=== PATIENT | female | born 1975 | race Two or more races ===

== ENCOUNTER 2019-08-25 18:35 | Emergency (ER) | payer SELFPAY ==
[~2019-08-25] VITALS: Ht 152.4 cm; Wt 66.5 kg
[~2019-08-25 18:35] MED LIST: ACYC-63 PO; FURO-69 PO; POTA10CA PO
[2019-08-25 19:51] VITALS: BP 97/63
--- NOTE | 2019-08-25 20:06 | RAD ---
INDICATION: Reason: Injury from fall 2 days ago, 5th digit pain radiating into hand / Spl. Instructions: / History: COMPARISON: None. IMPRESSION: Left wrist: 3 views obtained. A definite acute fracture line is not seen. Electronically signed by: Ishaan Sheikh MD (08/25/2019 8:03 PM) [id number]
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
== END 2019-08-25 20:45 | disposition home or self-care (01) ==
LOC: ER 18:35
DX: S60.052A Contusion of left little finger without damage to nail, initial encounter (principal); F17.210 Nicotine dependence, cigarettes, uncomplicated; Z98.890 Other specified postprocedural states; Z88.0 Allergy status to penicillin; W18.39XA Other fall on same level, initial encounter; Y93.89 Activity, other specified; Y92.89 Other specified places as the place of occurrence of the external cause; Y99.8 Other external cause status
CPT/HCPCS: 29125; 73130; 99283

== ENCOUNTER 2019-09-03 15:02 | Emergency (ER) | payer OTHER ==
[~2019-09-03] VITALS: Ht 152.4 cm; Wt 66.5 kg
[2019-09-03 15:05] VITALS: BP 120/86
[2019-09-03] MEDS ORDERED: HYDROcodone/APAP 5/325MG 1 TAB TABLET PO ONE (15:30)
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
[2019-09-03] MEDS ORDERED: HYDR-3165 PO (15:51)
== END 2019-09-03 15:56 | disposition home or self-care (01) ==
LOC: ER 15:02
DX: S50.11XA Contusion of right forearm, initial encounter (principal); F17.210 Nicotine dependence, cigarettes, uncomplicated; Z88.0 Allergy status to penicillin; W51.XXXA Accidental striking against or bumped into by another person, initial encounter; Y93.89 Activity, other specified; Y92.89 Other specified places as the place of occurrence of the external cause; Y99.0 Civilian activity done for income or pay
CPT/HCPCS: 73090; 99283

== ENCOUNTER 2020-05-19 17:30 | Emergency (ER) | payer SELFPAY ==
[~2020-05-19] VITALS: Ht 152.4 cm; Wt 66.5 kg
[~2020-05-19 17:30] MED LIST changes: +HYDR-3165 PO
[2020-05-19 17:36] VITALS: BP 138/89
[2020-05-19] MEDS ORDERED: HYDROcodone/APAP 5/325MG 1 TAB TABLET PO ONE (17:45)
[2020-05-19] MEDS ORDERED: IBUPROFEN 600 MG TABLET. PO ONE (17:45)
--- NOTE | 2020-05-19 18:00 | RAD ---
Exam: Right foot 3 views INDICATION: Twisted felt a pop 2 days ago TECHNIQUE: Frontal, lateral and oblique views of the right foot Comparisons: None FINDINGS: Bone mineralization is normal. No acute or healed fractures. Soft tissues are unremarkable. Joint spa cee are well-maintained. IMPRESSION: No acute osseous abnormality. Electronically signed by: Ynes Maxwell MD (05/19/2020 5:58 PM) KARTHIKEYAN
--- NOTE | 2020-05-19 18:11 | PHYS DOC ---
Past History Past Medical History: No Pertinent History Past Surgical History: Smoking: Cigarettes, Less than 1pk/day Alcohol Use: Rarely Drug Use: None Adult General Chief Complaint Chief Complaint: LOWER EXT PAIN HPI HPI Patient is a 44-year-old female presents to the emergency department stating she rolled her right ankle 2 days ago at approximately 2200. Patient states she has been hobbling around on her foot since then and is not felt any better with taking [id number] Tylenol at home. Patient reports her pain a 9/10 on a 1-10 pain scale. Patient denies any other physical complaints or physical injuries. Patient reports a allergy to penicillin, states she takes no prescription medications at home only an occasional idwk-ekc-vckqila Tylenol or ibuprofen for minor aches and pains. Patient ports her only surgical history are for C-sections her last 1 being 20 years ago. Review of Systems Review of Systems 14 body systems of review of systems have been reviewed. See HPI for pertinent positives and negative responses, otherwise all other systems are negative, nonpertinent or noncontributory. Current Medications Current Medications Current Medications Medications (Trade) Dose Ordered Sig/Mary Start Time Stop Time Status Last Admin Dose Admin Acetaminophen/ Hydrocodone Bitart (Lortab 5/325) 2 tab 1X ONCE 05/19/20 17:45 05/19/20 17:56 DC 05/19/20 17:54 2 TAB Ibuprofen (Motrin) 600 mg 1X ONCE 05/19/20 17:45 05/19/20 17:56 DC 05/19/20 17:55 600 MG Allergies Allergies Allergies Coded Allergies Type Severity Reaction Last Updated Verified Penicillins Allergy Intermediate hives 09/21/13 Yes Physical Exam Physical Exam Constitutional: Well developed, well nourished, no acute distress, non-toxic appearance. 44-year-old female no apparent distress. HENT: Normocephalic, atraumatic, bilateral external ears normal, oropharynx moist, no oral exudates, nose normal. Eyes: No obvious conjunctival hemorrhage or drainage, appears normal, patient tracking normally. Neck: Normal movement of head and neck. Cardiovascular: Distal cap refill less than 2 seconds, no cyanosis appreciated. Lungs & Thorax: No adventitious audible breath sounds appreciated, patient no respiratory distress. Skin: Warm, dry, no erythema, no rash noted on visible skin surfaces. Extremities: No tenderness, no cyanosis, no clubbing, ROM intact, no edema. Except for right lower extremity, pain to palpation lateral malleolar surfaces with noted swelling to adjacent structures, no bruising or ecchymotic areas appreciated, limited passive range of motion related to pain., Distal cap refill less than 2 seconds, 2+ dorsalis pedis pulses, no loss of sensation appreciated. Neurologic: Alert and oriented X 3, normal motor function, normal sensory function, no focal deficits noted. Psychologic: Affect normal, judgement normal, mood normal. Current Patient Data Vital Signs Vital Signs Date Time Temp Pulse Resp B/P (MAP) Pulse Ox O2 Delivery O2 Flow Rate FiO2 05/19/20 17:54 16 98 Room Air 05/19/20 17:36 97.8 94 138/89 (105) EKG EKG [] Radiology/Procedures Radiology/Procedures PATIENT: KARIE PARKINSON ACCOUNT: [id number] : 1975 LOCATION: ER AGE: 44 SEX: F EXAM STATUS: REG ER ORD. PHYSICIAN: KODY STUBBS APRN REASON: TWISTED FELT POP 2 DAYS AGO PROCEDURE: ANKLE RIGHT 3V Exam: Right foot 3 views INDICATION: Twisted felt a pop 2 days ago TECHNIQUE: Frontal, lateral and oblique views of the right foot Comparisons: None FINDINGS: Bone mineralization is normal. No acute or healed fractures. Soft tissues are unremarkable. Joint spaces are well-maintained. IMPRESSION: No acute osseous abnormality. Electronically signed by: Ynes Hernandez MD (05/19/2020 5:58 PM) [facility] DICTATED AND SIGNED BY: YNES HERNANDEZ MD DATE: 05/19/20 1755 CC: KODY STUBBS APRN; EMERGENCY,DEPARTMENT; PCP,NO ~MTH0 0 Heart Score C/O Chest Pain: No Risk Factors: Risk Factors: DM, Current or recent (<one month) smoker, HTN, HLP, family history of CAD, obesity. Risk Scores: Risk Factors: DM, Current or recent (<one month) smoker, HTN, HLP, family history of CAD, obesity. Course & Med Decision Making Course & Med Decision Making Pertinent Labs and Imaging studies reviewed. (See chart for details) 44-year-old female, vital signs reviewed, presents emergency department concerning of right ankle pain after rolling it 2 evenings ago. Physical examination concerning for ankle sprain versus occult fracture. An x-ray was ordered of the right ankle. Patient was given p.o. ibuprofen and p.o. [place] for pain. Ice pack offered. No acute fracture appreciated per house radiologist interpretation, discussed findings with patient, discussed RICE therapy, discussed treatment with Randy wrap and ankle stirrup device. Patient gave verbal understanding of discharge home instructions, RICE therapy, Randy wrap and ankle stirrup use, follow-up with primary care for ongoing aches and pains, return to ER precautions or concerns, patient had no further questions or concerns, was discharged home without incident. Kristinon Disclaimer Julio Cesar Disclaimer This electronic medical record was generated, in whole or in part, using a voice recognition dictation system. Departure Departure: Impression: Primary Impression: Right ankle sprain Disposition: 01 DC HOME SELF CARE/HOMELESS Condition: GOOD Referrals: [facility] W[facility]ER Patient Instructions: Cast or Splint Care, Elastic Bandage and RICE, RICE - Routine Care for Injuries Additional Instructions: The x-ray performed on your right ankle did not show any fracture. As we discussed, this is most likely a sprained ankle. Please use the stirrup splint for the next week and follow RICE therapy as we discussed. Please see your doctor soon for reevaluation for ongoing ankle discomfort. Return to the emergency department for worsening symptoms or other concerns. Please use ifld-bwl-dbbohpn ibuprofen for pain and discomfort. EMERGENCY DEPARTMENT GENERAL DISCHARGE INSTRUCTIONS Thank you for coming to [facility] (ED) today and trusting us with you care. We trust that you had a positivie experience in our Emergency Department. If you wish to speak to the department management, you may call the director at [phone]. YOUR FOLLOW UP INSTRUCTIONS ARE FOLLOWS: 1. Do you have a private Doctor? If you do not have a private doctor, please ask for a resource list of physicians or clinics that may be able to assist you with follow up care. 2. The Emergency Physician has interpreted your x-rays. The X-Ray specialist will also review them. If there is a change in the findings, you will be notified in 48 hours when at all possible. 3. A lab test or culture has been done, your results will be reviewed and you will be notified if you need a change in treatment. ADDITIONAL INSTRUCTIONS AND INFORMATION: 1. Your care today has been supervised by a physician who is specially trained in emergency care. Many problems require more than one evaluation for a complete diagnosis and treatment. We recommend that you schedule your follow up appointment as recommended to ensure complete treatment of you illness or injury. If you are unable to obtain follow up care and continue to have a problem, or if your condition worsens, we recommend that you return to the ED. 2. We are not able to safely determine your condition over the phone nor are we able to give sound medical advice over the phone. For these safety reasons, if you call for medical advice we will ask you to come to the ED for further evaluation. 3. If you have any questions regarding these discharge instructions please call the ED at [phone]. SAFETY INFORMATION: In the interest of safety, wellness, and injury prevention; we encourage you to wear your sealbelt, if you smoke; quite smoking, and we encourage family to use a protective helmet for bicycling and other sporting events that present an increased risk for head injury. IF YOUR SYMPTOMS WORSEN OR NEW SYMPTOMS DEVELOP, OR YOU HAVE CONCERNS ABOUT YOUR CONDITION; OR IF YOUR CONDITION WORSENS WHILE YOU ARE WAITING FOR YOUR FOLLOW UP APPOINTMENT; EITHER CONTACT YOUR PRIMARY CARE DOCTOR, THE PHYSICIAN WHOSE NAME AND NUMBER YOU WERE GIVEN, OR RETURN TO THE ED IMMEDIATELY. Problem Qualifiers Primary Impression: Right ankle sprain Encounter type: initial encounter Involved ligament of ankle: unspecified ligament Qualified Codes: S93.401A - Sprain of unspecified ligament of right ankle, initial encounter KODY STUBBS CCO & PRESIDENT May 19, 2020 18:11
== END 2020-05-19 18:17 | disposition home or self-care (01) ==
LOC: ER 17:30
DX: S93.401A Sprain of unspecified ligament of right ankle, initial encounter (principal); X50.9XXA Other and unspecified overexertion or strenuous movements or postures, initial encounter; Y99.8 Other external cause status; Y93.89 Activity, other specified; Y92.89 Other specified places as the place of occurrence of the external cause
CPT/HCPCS: 29515; 73610; 99283

== ENCOUNTER 2020-06-12 21:46 | Emergency (ER) | payer SELFPAY ==
[~2020-06-12] VITALS: Ht 152.4 cm; Wt 66.5 kg
[~2020-06-12 21:46] MED LIST changes: -ACYC-63 PO; +ACYC200C84 PO
[2020-06-12 21:50] VITALS: BP 145/83
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
[2020-06-12] MEDS ORDERED: HYDR-1179 PO ×2 (23:47→23:52)
== END 2020-06-13 00:10 | disposition home or self-care (01) ==
LOC: ER 21:46
DX: S90.111A Contusion of right great toe without damage to nail, initial encounter (principal); M19.90 Unspecified osteoarthritis, unspecified site; F17.210 Nicotine dependence, cigarettes, uncomplicated; Z88.0 Allergy status to penicillin; W22.8XXA Striking against or struck by other objects, initial encounter; Y93.89 Activity, other specified; Y92.89 Other specified places as the place of occurrence of the external cause; Y99.8 Other external cause status
CPT/HCPCS: 73630; 99283

== ENCOUNTER 2020-10-29 03:54 | Emergency (ER) | payer OTHER ==
[~2020-10-29] VITALS: Ht 152.4 cm; Wt 70.5 kg
[~2020-10-29 03:54] MED LIST changes: +HYDR-1179 PO
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
[2020-10-29 04:07] VITALS: BP 113/72
[2020-10-29] MEDS ORDERED: ACETAMINOPHEN 500 MG TABLET PO ONE (04:15)
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
== END 2020-10-29 05:01 | disposition home or self-care (01) ==
LOC: ER 03:54
DX: M79.642 Pain in left hand (principal); R51.9 Headache, unspecified; F17.210 Nicotine dependence, cigarettes, uncomplicated; V43.62XA Car passenger injured in collision with other type car in traffic accident, initial encounter; Y93.89 Activity, other specified; Y92.488 Other paved roadways as the place of occurrence of the external cause; Y99.8 Other external cause status
CPT/HCPCS: 73110; 73130; 99284-25

== ENCOUNTER 2021-01-24 12:41 | Emergency (ER) | payer SELFPAY ==
[~2021-01-24] VITALS: Ht 152.4 cm; Wt 70.5 kg
[2021-01-24 12:55] VITALS: BP 166/86
[2021-01-24 14:05] LABS: BACTERIA,URINE MOD /HPF (0-FEW); BILIRUBIN,URINE NEG (NEG); CLARITY,URINE HAZY; COLOR,URINE YELLOW; GLUCOSE,URINE NEG (NEG); NITRITE,URINE NEG (NEG); RBC,URINE OCC /HPF (0-2); SQUAMOUS EPITHELIAL CELL,UR MOD /LPF; UROBILINOGEN,URINE 0.2 mg/dL (0.2 mg/dL)
[2021-01-24] MEDS ORDERED: CEPH500C PO (14:33)
[2021-01-24] MEDS ORDERED: IBUP600T16 PO (14:33)
--- NOTE | 2021-01-24 14:33 | PHYS DOC ---
Past History Past Medical History: Arthritis, Hypertension Past Surgical History: Smoking: Cigarettes, Less than 1pk/day Alcohol Use: Heavy Drug Use: None General Adult EDM: Chief Complaint: DENTAL PROBLEM HPI: HPI: Patient is a 45-year-old female that presents today with multiple complaints. Patient states that she has right lower jaw pain from a broken tooth she said she has noticed the pain increased over the last 2 days and has come in for treatment of that she does not have a dentist at this time and is having increased pain. Patient is also here because she has not had a period since October 2020, she states she has taken 4 test and 3 of them have come back positive, so she is here to find out if she is . Review of Systems: Review of Systems: Constitutional: Denies fever or chills Eyes: Denies change in visual acuity HENT: Right lower jaw pain Respiratory: Denies cough or shortness of breath Cardiovascular: Denies chest pain or edema GI: Denies abdominal pain, nausea, vomiting, bloody stools or diarrhea : Denies dysuria Musculoskeletal: Denies back pain or joint pain Integument: Denies rash Neurologic: Denies headache, focal weakness or sensory changes Endocrine: Denies polyuria or polydipsia Lymphatic: Denies swollen glands Psychiatric: Denies depression or anxiety Allergies: Allergies: Allergies Coded Allergies Type Severity Reaction Last Updated Verified Penicillins Allergy Intermediate hives 09/21/13 Yes Physical Exam: PE: Constitutional: Well developed, well nourished, no acute distress, non-toxic appearance. [] HENT: Normocephalic, atraumatic, localized swelling noted in the left lower jaw over the incisor, broken tooth is noted exposed root is noted swelling is noted at that site. No bleeding or drainage is noted Eyes: PERRLA, EOMI, conjunctiva normal, no discharge. [] Neck: Normal range of motion, no tenderness, supple, no stridor. [] Cardiovascular:Heart rate regular rhythm, no murmur [] Lungs & Thorax: Bilateral breath sounds clear to auscultation [] Abdomen: Bowel sounds normal, soft, no tenderness, no masses, no pulsatile masses. [] Skin: Warm, dry, no erythema, no rash. [] Back: No tenderness, no CVA tenderness. [] Extremities: No tenderness, no cyanosis, no clubbing, ROM intact, no edema. [] Neurologic: Alert and oriented X 3, normal motor function, normal sensory function, no focal deficits noted. [] Psychologic: Affect normal, judgement normal, mood normal. [] Current Patient Data: Labs: Laboratory Tests Test 01/24/21 13:15 01/24/21 13:36 Urine Collection Type Unknown Urine Color Yellow Urine Clarity Hazy Urine pH 5.5 Urine Specific [place] >=1.030 Urine Protein Neg (NEG-TRACE) Urine Glucose (UA) Neg mg/dL (NEG) Urine Ketones (Stick) Neg mg/dL (NEG) Urine Blood Trace (NEG) Urine Nitrite Neg (NEG) Urine Bilirubin Neg (NEG) Urine Urobilinogen Dipstick 0.2 mg/dL (0.2 mg/dL) Urine Leukocyte Esterase Neg (NEG) Urine RBC Occ /HPF (0-2) Urine WBC 1-4 /HPF (0-4) Urine Squamous Epithelial Cells Mod /LPF Urine Bacteria Mod /HPF (0-FEW) Urine Mucus Mod /LPF POC Urine HCG, Qualitative hcg negative (Negative) Vital Signs: Vital Signs Date Time Temp Pulse Resp B/P (MAP) Pulse Ox O2 Delivery O2 Flow Rate FiO2 01/24/21 12:55 98.3 96 16 166/86 (112) 100 Room Air EKG: EKG: [] Radiology/Procedures: Radiology/Procedures: [] Heart Score: C/O Chest Pain: N/A Risk Factors: Risk Factors: DM, Current or recent (<one month) smoker, HTN, HLP, family history of CAD, obesity. Risk Scores: Score 0 - 3: 2.5% MACE over next 6 weeks - Discharge Home Score 4 - 6: 20.3% MACE over next 6 weeks - Admit for Clinical Observation Score 7 - 10: 72.7% MACE over next 6 weeks - Early Invasive Strategies Course & Med Decision Making: Course & Med Decision Making Pertinent Labs and Imaging studies reviewed. (See chart for details) Reviewed laboratory results with patient, will send patient home with an antibiotic for dental abscess, also will give patient a list of dental clinics that she can follow-up with due to her financial situation that will offer little to no cost care. Patient is agreeable to the plan of care. Julio Cesar Disclaimer: Julio Cesar Disclaimer: This electronic medical record was generated, in whole or in part, using a voice recognition dictation system. Departure Departure: Impression: Primary Impression: Dental caries Disposition: HOME / SELF CARE / HOMELESS Condition: STABLE Referrals: PCP,PERI (PCP) Patient Instructions: Dental Caries Additional Instructions: Keflex 1 tablet 4 times daily for the next 10 days Motrin 600 mg every 6 hours as needed for pain Follow-up with a dentist [facility] Cephalexin (KEFLEX) 500 Mg Capsule 1 CAP PO QID for dental for 10 Days, #40 CAP Prov: LINDA ORTEGA ASSISTANT BRANCH MANAGER 01/24/21 Ibuprofen (IBUPROFEN) 600 Mg Tablet 600 MG PO PRN Q6HRS PRN for PAIN, #30 TAB Prov: LINDA ORTEGA ASSISTANT BRANCH MANAGER 01/24/21 LINDA ORTEGA APRN Jan 24, 2021 14:33
== END 2021-01-24 14:46 | disposition home or self-care (01) ==
LOC: ER 12:41
DX: K02.9 Dental caries, unspecified (principal); Z32.02 Encounter for pregnancy test, result negative; M19.90 Unspecified osteoarthritis, unspecified site; I10 Essential (primary) hypertension; F17.210 Nicotine dependence, cigarettes, uncomplicated; F10.20 Alcohol dependence, uncomplicated; Z88.0 Allergy status to penicillin; Y90.9 Presence of alcohol in blood, level not specified
CPT/HCPCS: 81001; 81025; 87086; 99283

== ENCOUNTER 2021-02-08 00:37 | Emergency (ER) | payer SELFPAY ==
[~2021-02-08] VITALS: Ht 152.4 cm; Wt 71.0 kg
[~2021-02-08 00:37] MED LIST changes: +CEPH500C PO; +IBUP600T16 PO
[2021-02-08] MEDS ORDERED: ACETAMINOPHEN 500 MG TABLET PO ONE (01:00)
--- NOTE | 2021-02-08 01:04 | PHYS DOC ---
Past History Past Medical History: Arthritis, Hypertension Past Surgical History: No Surgical History, Smoking: Cigarettes, Less than 1pk/day Alcohol Use: None Drug Use: None Adult General HPI HPI Patient is a 45-year-old female, otherwise healthy and up-to-date on tetanus who presents after tripping and falling while walking behind [employer] and hitting her forehead on the ground. Denies any loss of consciousness, changes in vision, neck pain, chest pain, shortness of breath, abdominal pain, nausea, vomiting. Denies any numbness/weakness/tingling. Denies any trouble sitting, standing or walking. States she has a laceration right on her forehead and some pain in the area, 5 out of 10, dull and achy in nature. Review of Systems Review of Systems Review of systems otherwise unremarkable except noted in HPI Allergies Allergies Allergies Coded Allergies Type Severity Reaction Last Updated Verified Penicillins Allergy Intermediate hives 09/21/13 Yes Physical Exam Physical Exam Constitutional: Well developed, well nourished, no acute distress, non-toxic appearance. [] HENT: Patient has a T-shaped superficial laceration on forehead, 2 cm x 2 cm, bleeding controlled, bilateral external ears normal, oropharynx moist, no oral exudates, nose normal. [] Eyes: PERRLA, EOMI, conjunctiva normal, no discharge. [] Neck: Normal range of motion, no tenderness, supple, no stridor. [] Cardiovascular:Heart rate regular rhythm, no murmur [] Lungs & Thorax: Bilateral breath sounds clear to auscultation [] Abdomen: soft, no tenderness, no masses, no pulsatile masses. [] Skin: Warm, dry, no erythema, no rash. [] Back: No tenderness, no CVA tenderness. [] Extremities: No tenderness, no cyanosis, no clubbing, ROM intact, no edema. [] Neurologic: Alert and oriented X 3, normal motor function, normal sensory function, able to sit, stand and walk without issue, no focal deficits noted. [] Psychologic: Affect normal, judgement normal, mood normal. [] EKG EKG [] Radiology/Procedures Radiology/Procedures [] Heart Score C/O Chest Pain: No Risk Factors: Risk Factors: DM, Current or recent (<one month) smoker, HTN, HLP, family history of CAD, obesity. Risk Scores: Risk Factors: DM, Current or recent (<one month) smoker, HTN, HLP, family history of CAD, obesity. Course & Med Decision Making Course & Med Decision Making Patient is a 45-year-old female presents with forehead laceration after tripping and falling Vital signs not concerning. Physical exam noted above. Patient given ice pack and Tylenol. CT of the head with no acute osseous abnormalities with incidental findings suggestive of hemangioma. Given patient copy of report and advised to follow-up with primary care to discuss need for outpatient MRI. Wound cleaned extensively, Steri-Stripped and bandaged. Discussed wound management with patient and given wound care education and materials for home. Advised to follow-up with primary care physician in the morning to update and set up a follow-up. Gave return precautions to the ED. Patient grateful, verbalized understanding and agreed with plan of discharge. [] Dragon Disclaimer Dragon Disclaimer This electronic medical record was generated, in whole or in part, using a voice recognition dictation system. Departure Departure: Impression: Primary Impression: Fall Additional Impression: Laceration Disposition: 01 HOME / SELF CARE / HOMELESS Condition: GOOD Referrals: PCP,PERI (PCP) KIRSTEN DELGADO Patient Instructions: Laceration Care, Adult Additional Instructions: Thank you for coming into the emergency department tonight and allowing us to take care of you. Please read the attached information carefully to go back over some of the things we discussed on wound care. Please keep the area clean, dry and bandaged as we discussed. As demonstrated in the emergency department, please use the wound care materials given you to change your bandage and Steri- Strips daily. Please follow-up in the morning with your primary care physician update on your ED visit and CT results and set up a follow-up for reevaluation in 7 to 10 days. Please come back to the ED with new or concerning symptoms as discussed. Problem Qualifiers JUDY CALLES MD Feb 08, 2021 01:04
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
[2021-02-08 02:05] VITALS: BP 97/62
== END 2021-02-08 02:05 | disposition home or self-care (01) ==
LOC: ER 00:37
DX: S01.81XA Laceration without foreign body of other part of head, initial encounter (principal); M19.90 Unspecified osteoarthritis, unspecified site; I10 Essential (primary) hypertension; F17.210 Nicotine dependence, cigarettes, uncomplicated; Z88.0 Allergy status to penicillin; W01.0XXA Fall on same level from slipping, tripping and stumbling without subsequent striking against object, initial encounter; Y93.89 Activity, other specified; Y92.89 Other specified places as the place of occurrence of the external cause; Y99.8 Other external cause status
CPT/HCPCS: 70450; 81025; 99284

== ENCOUNTER 2021-06-08 16:32 | Emergency (ER) | payer SELFPAY ==
[~2021-06-08] VITALS: Ht 152.4 cm; Wt 71.0 kg
[2021-06-08] MEDS ORDERED: ONDANSETRON PF 4 MG/2 ML VIAL. IVP ONE ×2 (17:00→17:30)
[2021-06-08] MEDS ORDERED: IV NORMAL SALINE 1,000ML 1,000 ML IV ONE (17:15)
--- NOTE | 2021-06-08 17:36 | PHYS DOC ---
Past History Past Medical History: Arthritis, Hypertension Past Surgical History: Smoking: Cigarettes, Less than 1pk/day Alcohol Use: Occasionally Drug Use: None General Adult EDM: Chief Complaint: NAUSEA/VOMITING/DIARRHEA HPI: HPI: Patient is a 45-year-old female presents with nausea and vomiting for 4 days. Patient is also reporting generalized, abdominal pain. Denies diarrhea. Denies taking anything at home for pain or nausea. Denies tobacco or alcohol use. History of arthritis, hypertension. Review of Systems: Review of Systems: ROS At least 10 ROS systems have been reviewed and are negative except as documented in the HPI. General: Negative except as outlined in HPI above. Skin: Negative except as outlined in HPI above. HEENT: Negative except as outlined in HPI above. Neck: Negative except as outlined in HPI above. Respiratory: Negative except as outlined in HPI above.. Cardiovascular: Negative except as outlined in HPI above. Abdomen: Negative except as outlined in HPI above. : Negative except as outlined in HPI above. Back/MSK: Negative except as outlined in HPI above. Neuro: Negative except as outlined in HPI above. Psych: Negative except as outlined in HPI above. Current Medications: Current Meds: Current Medications Medications (Trade) Dose Ordered Sig/Mary Start Time Stop Time Status Last Admin Dose Admin Ondansetron HCl (Zofran) 4 mg 1X ONCE 06/08/21 17:00 06/08/21 17:01 DC 06/08/21 17:06 4 MG Sodium Chloride 1,000 ml @ 1,000 mls/hr 1X ONCE 06/08/21 17:15 06/08/21 18:14 06/08/21 17:06 1,000 MLS/HR Allergies: Allergies: Allergies Coded Allergies Type Severity Reaction Last Updated Verified Penicillins Allergy Intermediate hives 06/08/21 Yes Physical Exam: PE: Constitutional: Well developed, well nourished, no acute distress, non-toxic appearance. [] HENT: Normocephalic, atraumatic, bilateral external ears normal Eyes: PERRLA, EOMI, conjunctiva normal, no discharge. [] Neck: Normal range of motion, no tenderness, supple, no stridor. [] Cardiovascular:Heart rate regular rhythm, no murmur [] Lungs & Thorax: Bilateral breath sounds clear to auscultation [] Abdomen: Bowel sounds normal, soft, tenderness Skin: Warm, dry, no erythema, no rash. [] Back: No tenderness, no CVA tenderness. [] Extremities: No tenderness, no cyanosis, no clubbing, ROM intact, no edema. [] Neurologic: Alert and oriented X 3, normal motor function, normal sensory function, no focal deficits noted. [] Psychologic: Affect normal, judgement normal, mood normal. [] Current Patient Data: Vital Signs: Vital Signs Date Time Temp Pulse Resp B/P (MAP) Pulse Ox O2 Delivery O2 Flow Rate FiO2 06/08/21 16:40 97.7 81 24 128/81 (97) 98 Room Air EKG: EKG: [] Radiology/Procedures: Radiology/Procedures: []Abdominal and Pelvis CT, Without Contrast: History: Reason: generalized abd pain / Spl. Instructions: / History: Comparison: None. Procedure: Axial images are obtained of the abdomen and pelvis, without IV or oral contrast. Oral Contrast: No Findings: Evaluation of solid organs is limited without contrast. The appendix is normal. The gallbladder appears normal. Liver: Normal. Spleen: Normal. Pancreas: Normal. Adrenal Glands: Normal. Kidneys: There is a small nonobstructive stone in the left renal pelvis. There is no free air or free fluid. There is no lymphadenopathy. The urinary bladder appears normal. There is no pericolonic inflammation identified. There is a mixed density lesion in the left adnexa that measures 3.8 x 2.6 cm. Impression: Left ovarian lesion could be benign or malignant. End impression PQRS Compliance Statement: One or more of the following individualized dose reduction techniques were utilized for this examination: 1. Automated exposure control 2. Adjustment of the mA and/or kV according to patient size 3. Use of iterative reconstruction technique Electronically signed by: Hayley Bocanegra III, MD (06/08/2021 7:30 PM) [facility] DICTATED AND SIGNED BY: HAYLEY BOCANEGRA III, MD DATE: 06/08/211911 CC: JOSE KRUGER APRN; PCP,NO ~ Heart Score: C/O Chest Pain: No Risk Factors: Risk Factors: DM, Current or recent (<one month) smoker, HTN, HLP, family history of CAD, obesity. Risk Scores: Score 0 - 3: 2.5% MACE over next 6 weeks - Discharge Home Score 4 - 6: 20.3% MACE over next 6 weeks - Admit for Clinical Observation Score 7 - 10: 72.7% MACE over next 6 weeks - Early Invasive Strategies Course & Med Decision Making: Course & Med Decision Making Pertinent Labs and Imaging studies reviewed. (See chart for details) [] 45-year-old female presents with nausea and vomiting for 4 days, generalized abdominal pain. Afebrile. Work-up in ER consisted of CBC, CMP, urinalysis CT abdomen pelvis. Patient given Zofran for nausea along with fluids. Patient requesting something for pain as well. Patient given 4 mg morphine. All labs unremarkable. CT of abdomen pelvis does show Left ovarian lesion could be benign or malignant. Discussed with patient. Gave patient a copy of results. Patient should follow-up with PCP. Julio Cesar Disclaimer: Julio Cesar Disclaimer: This electronic medical record was generated, in whole or in part, using a voice recognition dictation system. Departure Departure: Impression: Primary Impression: Nausea and vomiting Qualified Codes: R11.2 - Nausea with vomiting, unspecified Disposition: 01 HOME / SELF CARE / HOMELESS Condition: STABLE Referrals: PCP,PERI (PCP) Patient Instructions: Nausea and Vomiting, [id number] Additional Instructions: You are seen in the emergency room for nausea and vomiting. All of your labs are unremarkable. Sending home with Zofran. Continue taking ibuprofen at home for discomfort. Follow-up with your PCP. I am including a copy of your CT results. EMERGENCY DEPARTMENT GENERAL DISCHARGE INSTRUCTIONS Thank you for coming to [facility] (ED) today and trusting us with you care. We trust that you had a positivie experience in our Emergency Department. If you wish to speak to the department management, you may call the director at [phone]. YOUR FOLLOW UP INSTRUCTIONS ARE FOLLOWS: 1. Do you have a private Doctor? If you do not have a private doctor, please ask for a resource list of physicians or clinics that may be able to assist you with follow up care. 2. The Emergency Physician has interpreted your x-rays. The X-Ray specialist will also review them. If there is a change in the findings, you will be notified in 48 hours when at all possible. 3. A lab test or culture has been done, your results will be reviewed and you will be notified if you need a change in treatment. ADDITIONAL INSTRUCTIONS AND INFORMATION: 1. Your care today has been supervised by a physician who is specially trained in emergency care. Many problems require more than one evaluation for a complete diagnosis and treatment. We recommend that you schedule your follow up appointment as recommended to ensure complete treatment of you illness or injury. If you are unable to obtain follow up care and continue to have a problem, or if your condition worsens, we recommend that you return to the ED. 2. We are not able to safely determine your condition over the phone nor are we able to give sound medical advice over the phone. For these safety reasons, if you call for medical advice we will ask you to come to the ED for further evaluation. 3. If you have any questions regarding these discharge instructions please call the ED at [phone]. SAFETY INFORMATION: In the interest of safety, wellness, and injury prevention; we encourage you to wear your sealbelt, if you smoke; quite smoking, and we encourage family to use a protec tive helmet for bicycling and other sporting events that present an increased risk for head injury. IF YOUR SYMPTOMS WORSEN OR NEW SYMPTOMS DEVELOP, OR YOU HAVE CONCERNS ABOUT YOUR CONDITION; OR IF YOUR CONDITION WORSENS WHILE YOU ARE WAITING FOR YOUR FOLLOW UP APPOINTMENT; EITHER CONTACT YOUR PRIMARY CARE DOCTOR, THE PHYSICIAN WHOSE NAME AND NUMBER YOU WERE GIVEN, OR RETURN TO THE ED IMMEDIATELY. Scripts Ondansetron (ONDANSETRON ODT) 4 Mg Tab.rapdis 1 TAB PO PRN Q6-8HRS for nausea for 7 Days, #16 TAB Prov: JOSE KRUGER APRN 06/08/21 JOSE KRUGER APRN Jun 08, 2021 17:36
[2021-06-08] MEDS ORDERED: MORPHINE SULFATE 4 MG/ML DISP.SYRIN. IV ONE ×2 (17:45→20:45)
[2021-06-08 17:51] LABS: BASO # 0.1 x10^3/uL (0.0-0.2); BASO % 1 % (0-3); EOS # 0.1 x10^3/uL (0.0-0.7); EOS % 1 % (0-3); HEMATOCRIT 37.4 % (36.0-47.0); HEMOGLOBIN 11.9 g/dL (12.0-15.5); LYMPH # 0.9 x10^3/uL (1.0-4.8); LYMPH % 13 % (24-48); MEAN CORPUSCULAR HEMOGLOBIN 23 pg (25-35); MEAN CORPUSCULAR HGB CONC 32 g/dL (31-37); MEAN CORPUSCULAR VOLUME 73 fL (79-100); MONO # 0.3 x10^3/uL (0.0-1.1); MONO % 4 % (0-9); NEUT # 5.5 x10^3uL (1.8-7.7); NEUT % 81 % (31-73); PLATELET COUNT 459 x10^3/uL (140-400); RED BLOOD COUNT 5.16 x10^6/uL (3.50-5.40); RED CELL DISTRIBUTION WIDTH 16.9 % (11.5-14.5); WHITE BLOOD COUNT 6.8 x10^3/uL (4.0-11.0)
[2021-06-08 17:54] LABS: CALCIUM 9.1 mg/dL (8.5-10.1); CREATININE 0.7 mg/dL (0.6-1.0); GFR 90.9; POTASSIUM 3.5 mmol/L (3.5-5.1)
[2021-06-08 18:00] LABS: ALBUMIN 3.6 g/dL (3.4-5.0); ALBUMIN/GLOBULIN RATIO 0.9 (1.0-1.7); MAGNESIUM 2.1 mg/dL (1.8-2.4); TOTAL BILIRUBIN 0.2 mg/dL (0.2-1.0); TOTAL PROTEIN 7.5 g/dL (6.4-8.2)
--- NOTE | 2021-06-08 19:33 | RAD ---
Abdominal and Pelvis CT, Without Contrast: History: Reason: generalized abd pain / Spl. Instructions: / History: Comparison: None. Procedure: Axial images are obtained of the abdomen and pelvis, without IV or oral contrast. Oral Contrast: No Findings: Evaluation of solid organs is limited without contrast. The appendix is normal. The gallbladder appears normal. Liver: Normal. Spleen: Normal. Pancreas: Normal. Adrenal Glands: Normal. Kidneys: There is a small nonobstructive stone in the left renal pelvis. There is no free air or free fluid. There is no lymphadenopathy. The urinary bladder appears normal. There is no pericolonic inflammation identified. There is a mixed density lesion in the left adnexa that measures 3.8 x 2.6 cm. Impression: Left ovarian lesion could be benign or malignant. End impression PQRS Compliance Statement: One or more of the following individualized dose reduction techniques were utilized for this examinat ion: 1. Automated exposure control 2. Adjustment of the mA and/or kV according to patient size 3. Use of iterative reconstruction technique Electronically signed by: Wu Bocanegra III, MD (06/08/2021 7:30 PM) [facility]
[2021-06-08 19:42] LABS: CLARITY,URINE CLOUDY; COLOR,URINE YELLOW; GLUCOSE,URINE NEG (NEG); NITRITE,URINE NEG (NEG); UROBILINOGEN,URINE 0.2 mg/dL (0.2 mg/dL)
[2021-06-08 19:43] LABS: AMORPHOUS SEDIMENT,UR PRESENT /HPF; BACTERIA,URINE 0 /HPF (0-FEW); RBC,URINE 0 /HPF (0-2); SQUAMOUS EPITHELIAL CELL,UR FEW /LPF; WBC,URINE 0 /HPF (0-4)
[2021-06-08] MEDS ORDERED: ONDA4TAB12 PO (20:25)
[2021-06-08] MEDS ORDERED: ONDANSETRON 4MG ODT 4TABLET STARTPACK. PO ONE ×2 (20:36→20:45)
[2021-06-08 20:45] VITALS: BP 114/63
== END 2021-06-08 20:45 | disposition home or self-care (01) ==
LOC: ER 16:32
DX: R11.2 Nausea with vomiting, unspecified (principal); R10.84 Generalized abdominal pain; M19.90 Unspecified osteoarthritis, unspecified site; I10 Essential (primary) hypertension; F17.210 Nicotine dependence, cigarettes, uncomplicated; Z98.890 Other specified postprocedural states; Z88.0 Allergy status to penicillin
CPT/HCPCS: 36415; 74176; 80053; 81001; 81025; 83690; 83735; 85025; 96361; 96374; 96375; 96376; 99284; J2270; J2405; J7030; Q0162